=== PATIENT | male | born 1950 ===

== ENCOUNTER → 2023-01-28 12:45 | Outpatient (BNVA) | payer OTHER, SELFPAY | PROVIDERS: Visit Provider Internal Medicine | DX: R07.9 Chest pain, unspecified (principal) | CPT/HCPCS: 93005 ==

== ENCOUNTER 2024-01-18 08:06 | Outpatient (CLI) | payer MEDICARE, SELFPAY ==
--- NOTE | 2024-01-18 09:00 | USCV_ITS ---
Jose G Peres Age: 73 Gender: M : 1950 Exam Date: 01/18/2024 08:23 Ordering Phys: Patrick Mclaughlin M.D ([email or web address]) Technologist: Exam Location: [facility] – [place] Indication: bi cuspid ao valve BP: 140 / 80 HR: 56 Rhythm: Sinus Technical Quality: Adequate MEASUREMENTS (Male / Female) Normal Values 2D ECHO LV Diastolic Diameter PLAX 5.3 cm 4.2 - 5.9 / 3.9 - 5.3 cm IVS Diastolic Thickness 1.2 cm 0.6 - 1.0 / 0.6 - 0.9 cm IVS Systolic Thickness 1.6 cm LVPW Diastolic Thickness 1.2 cm 0.6 - 1.0 / 0.6 - 0.9 cm LVPW Systolic Thickness 1.9 cm LVOT Diameter 2.0 cm LV Ejection Fraction 2D Teich 60.7 % LA Diameter 4.3 cm RA Systolic Volume 4C AL 61.5 ml RA Systolic Volume 4C MOD 57.7 ml Aorta at Sinotubular Diameter 2.6 cm M-MODE LA Ao Ratio MM 1.0 AV Cusp Separation MM 2.2 cm DOPPLER AV Peak Velocity 104.0 cm/s LVOT Peak Velocity 100.0 cm/s AV Area Cont Eq vti 4.5 cm squared AV Area Cont Eq pk 3.0 cm squared MV Peak Velocity 108.0 cm/s TV Peak Velocity 177.0 cm/s TR Peak Velocity 191.0 cm/s TR Peak Gradient 14.6 mmHg TV Peak E Velocity 89.0 cm/s PV Peak Velocity 107.0 cm/s FINDINGS Left Ventricle Left ventricle is normal size. LV systolic function is normal with EF of 55 to 60%. No regional wall motion abnormalities are seen. Right Ventricle Normal in size and function Right Atrium Normal in size Left Atrium Normal in size Mitral Valve Structurally normal mitral valve. Mild mitral regurgitation Aortic Valve Aortic valve is thickened. Possible bicuspid aortic valve. No significant stenosis or regurgitation. Tricuspid Valve Insufficient TR jet to calculate RVSP Pulmonic Valve Not well visualized Pericardium Normal Aorta Normal in size IVC Not visualized CONCLUSIONS LV systolic function is normal with EF 55 to 60%. Mild mitral regurgitation Aortic valve is thickened. Possible bicuspid aortic valve. No significant stenosis or regurgitation. No comparison studies are available. Patrick Mclaughlin MD (Electronically Signed) Final Date: 23 January 2024 23:03 S
== END 2024-01-18 08:07 | disposition home or self-care (01) ==
LOC: RAD 08:08
PROVIDERS: Visit Provider Internal Medicine
DX: I35.2 Nonrheumatic aortic (valve) stenosis with insufficiency (principal); R01.1 Cardiac murmur, unspecified
CPT/HCPCS: 93306